=== PATIENT | female | born 1985 | race Caucasian/White ===

== ENCOUNTER → 2019-04-16 08:44 | Outpatient (CLI) | payer OTHER, SELFPAY ==
[2019-04-16 10:10] LABS: Add Manual Diff / Slide Review NO; Basophils Absolute Auto 0 /uL (0-100); Basophils Percent Auto 0.2 % (0-2); Eosinophils Absolute Auto 0 /uL (0-450); Eosinophils Percent Auto 0.4 % (2-4); Hematocrit 36.1 % (36-46); Hemoglobin 12.4 g/dL (12.0-16.0); Lymphocytes Absolute Auto 1300 /uL (1100-4500); Lymphocytes Percent Auto 14.7 % (25-40); Mean Corpuscular HGB Conc 34.4 % (30-36); Mean Corpuscular Hemoglobin 32.5 PG (26-34); Mean Corpuscular Volume 94.5 fL (80-100); Monocytes Absolute Auto 400 /uL (0-900); Monocytes Percent Auto 4.5 % (3-14); Neutrophils Absolute Auto 7100 /uL (1500-7000); Neutrophils Percent Auto 80.2 % (50-75); Platelet Count 180 X10^3/uL (150-400); Red Blood Cell Count 3.82 X10^6/uL (4.0-5.2); Red Cell Distribution Width 13.6 % (11.6-14.8); White Blood Cell Count 8.9 X10^3/uL (4.5-11.0)
[2019-04-16 10:14] LABS: Appearance Urine UA CLEAR; Bilirubin Urine UA NEGATIVE (NEGATIVE); Color Urine UA YELLOW; Glucose Urine UA NEGATIVE (Negative); Ketones Urine UA NEGATIVE (NEGATIVE); Leukocyte Esterase Urine UA NEGATIVE (NEGATIVE); Nitrite Urine UA NEGATIVE (Negative); Occult Blood Urine UA TRACE-LYSED (Negative); Protein Urine UA NEGATIVE (Negative); Specific Gravity Urine UA 1.025 (1.000-1.035); Urobilinogen Urine UA 0.2 E.U./dL (0.2); pH Urine UA 6.5 (4.5-8.0)
[2019-04-16 17:55] LABS: Hepatitis B Surface Antigen NEGATIVE s/c (NEGATIVE)
[2019-04-16 17:56] LABS: Rubella Antibody IgG 46.7 IU/mL (>15)
[2019-04-16 18:14] LABS: HIV 1 and 2 Antibody NEGATIVE (NEGATIVE)
[2019-04-16 19:12] LABS: Hep C Virus Ab w/Reflex Quant NEGATIVE s/c (NEGATIVE)
[2019-04-18 13:17] LABS: RPR Screen Nonreactive (Nonreactive)
[2019-04-22 11:14] LABS: Calc Gestational Age 16.3; Cigarette Smoker N; Donated Egg NOT GIVEN; Donor Egg Age NOT GIVEN; Estriol, Free 0.77 ng/mL; Inhibin A, Dimeric 109 pg/mL; Maternal Weight 132 lbs; Number of Fetuses 1; Previous Pregnancy Down Syndro NOT GIVEN; hCG, MoM 1.17; hCG, Serum 41.2 IU/mL
== END ==
PROVIDERS: PCP Family Medicine; Visit Provider Family Medicine
DX: Z34.82 Encounter for supervision of other normal pregnancy, second trimester (principal); Z3A.16 16 weeks gestation of pregnancy
CPT/HCPCS: 36415; 80055; 81003; 82105; 82677; 83036; 84702; 86336; 86703; 86787; 86803; 86850; 86900; 86901; 87077; 87086

== ENCOUNTER → 2019-05-22 10:10 | Outpatient (CLI) | payer OTHER, SELFPAY ==
--- NOTE | 2019-05-22 10:11 | DI.US.S_ITS ---
PROCEDURE: US OB >= 14 WEEKS FETUS INDICATIONS: ANATOMIC SURVEY OUTSIDE/PRIOR DATING DATA: Last menstrual period (LMP): 12/26/18. LMP-based estimated date of delivery (TALON): 10/02/19. First dating scan (date and location): This study, 05/22/19. Estimated date of delivery (TALON) from first dating scan: 09/24/19. TECHNIQUE: Real-time scanning was performed of the fetus, with image documentation and biometric measurements. Endovaginal scanning: Not needed for this study COMPARISON: None. FINDINGS: General: A single living intrauterine gestation is present. Presentation: Transverse and variable. Placenta: Placental position is anterior, without previa. Amniotic fluid index: 22.6 cm, normal range is 5-24 cm. heart rate: 144 beats per minute. Maternal cervical canal: 4.8 cm long. Normal lower limit is 2.5 cm. biometrics: Biparietal diameter: 5.3 cm, 22 weeks 1 day Head circumference: 20.3 cm, 22 weeks 3 days Abdominal circumference: 17.9 cm, 22 weeks 5 days Femur length: 3.7 cm, 21 weeks 6 days Estimated gestational age from initial scan: not applicable. Composite gestational age from present scan: 22 weeks 1 day weight and percentile: 497 g, the 97th percentile. Measurement variability for biometric dating: +/- 7 days from 14 weeks to 15 weeks 6 days gestation, +/- 10 days from 16 weeks to 21 weeks 6 days gestation, +/- 2 weeks from 22 weeks to 27 weeks 6 days gestation, +/- 3 weeks for 28 weeks gestation or later. weight reference: 4500 g or EFW >90/95% is considered macrosomia or large for gestational age. EFW <10% is small for gestational age. EFW 5% or less is considered intra-uterine growth restriction. Anatomic survey: Neuro: Ventricles are non-dilated at less than 10 mm. Cisterna magna is normal at 3-11 mm. Cerebellum is normal in size and morphology. Nuchal skin fold: Normal at less than 6 mm between 14-21 weeks gestational age. Face: Nose and lips, facial profile are normal. Spine: No evidence for spina bifida. Heart: 4-chambered heart is present, with normal ventricular outflow tracts. Diaphragm: Diaphragm is intact. Stomach: Left-sided stomach is present. Kidneys: No hydronephrosis. Normal is less than 5 mm in 2nd trimester, less than 7 mm in 3rd trimester. Cord: 3-vessel cord has orthotopic insertion. Bladder: Normal in size. Extremities: All 4 extremities identified. IMPRESSION: 22 week 1 day gestational age,, with estimated current weight at the upper 97th percentile. A first trimester OB ultrasound is not available for review to establish most accurate dating for this gestation. Therefore a followup assessment in 2-3 weeks for persistent macrosomia is recommended. The delivery date is projected to be centered on 09/24/19. No anomaly found. Dictated by: Conrad Sparrow M.D. on 05/22/2019 at 12:27 Approved by: Conrad Sparrow M.D. on 05/22/2019 at 12:31
== END ==
PROVIDERS: PCP Family Medicine; Visit Provider Family Medicine
DX: Z34.82 Encounter for supervision of other normal pregnancy, second trimester (principal); Z3A.22 22 weeks gestation of pregnancy
CPT/HCPCS: 76811

== ENCOUNTER → 2019-06-13 07:36 | Outpatient (CLI) | payer OTHER, SELFPAY ==
[2019-06-13 09:02] LABS: Hematocrit 31.8 % (36-46); Hemoglobin 10.9 g/dL (12.0-16.0)
[2019-06-13 09:23] LABS: GTT (PREG) 1 Hour PP 50gm Dose 131 mg/dL (76-139)
== END ==
PROVIDERS: PCP Family Medicine; Visit Provider Family Medicine
DX: Z34.90 Encounter for supervision of normal pregnancy, unspecified, unspecified trimester (principal)
CPT/HCPCS: 36415; 82950; 85014; 85018

== ENCOUNTER → 2019-07-01 09:44 | Outpatient (CLI) | payer OTHER, SELFPAY ==
--- NOTE | 2019-07-01 09:45 | DI.US.S_ITS ---
PROCEDURE: US OB LIMITED INDICATIONS: F/U PERSISTENT MACROSOMIA OUTSIDE/PRIOR DATING DATA: Last menstrual period (LMP): 12/26/18. LMP-based estimated date of delivery (TALON): 10/02/19. First dating scan (date and location): This study, 05/22/19. Estimated date of delivery (TALON) from first dating scan: 09/24/19.. TECHNIQUE: Real-time scanning was performed of the fetus, with image documentation and biometric measurements. Endovaginal scanning: No COMPARISON: [facility], OB >= 14 WEEKS FETUS, 05/22/2019, 10:21. FINDINGS: General: A single living intrauterine gestation is present. Presentation: Vertex Placenta: Placental position is anterior, without previa. Amniotic fluid index: 23.8 cm, normal range is 5-24 cm. heart rate: 143 beats per minute. Maternal cervical canal: 3.3 cm long. Normal lower limit is 2.5 cm. biometrics: Biparietal diameter: 29 weeks 4 days Head circumference: 29 weeks 3 days Abdominal circumference: 29 Femur length: 20 weeks 6 days Estimated gestational age from initial scan: 27 weeks 6 days Composite gestational age from present scan: 29 weeks 1 day Estimated weight and percentile: 1343 g; 85th percentile Measurement variability for biometric dating: +/- 7 days from 14 weeks to 15 weeks 6 days gestation, +/- 10 days from 16 weeks to 21 weeks 6 days gestation, +/- 2 weeks from 22 weeks to 27 weeks 6 days gestation, +/- 3 weeks for 28 weeks gestation or later. weight reference: 4500 g or EFW >90/95% is considered macrosomia or large for gestational age. EFW <10% is small for gestational age. EFW 5% or less is considered intra-uterine growth restriction. Other: Not applicable. IMPRESSION: 1. Single living IUP redemonstrated and interval growth is upper limits of normal. Dictated by: Onesimo JOHNSON Interpreted: Gerardo Rand MD on 07/01/2019 at 10:43 Approved by: Gerardo Rand M.D. on 07/01/2019 at 15:10
== END ==
PROVIDERS: PCP Family Medicine; Visit Provider Family Medicine
DX: O36.63X0 Maternal care for excessive fetal growth, third trimester, not applicable or unspecified (principal); Z3A.29 29 weeks gestation of pregnancy
CPT/HCPCS: 76815

== ENCOUNTER → 2019-07-24 10:19 | Outpatient (CLI) | payer OTHER, SELFPAY ==
[2019-07-24 11:02] LABS: Hematocrit 36.8 % (36-46); Hemoglobin 12.6 g/dL (12.0-16.0)
[2019-07-24 11:57] LABS: TSH w/ Reflex to FT4 1.38 uIU/mL (0.47-4.68)
== END ==
PROVIDERS: PCP Family Medicine; Visit Provider Family Medicine
DX: D64.9 Anemia, unspecified (principal)
CPT/HCPCS: 36415; 84443; 85014; 85018